=== PATIENT | male | born 1985 | race Caucasian/White ===

== ENCOUNTER 2017-08-05 14:45 | Emergency (ER) | payer BC, OTHER ==
[2017-08-05 15:41] VITALS: BP 138/74; PULSE 103; RESP 18; TEMP 97.5; O2SAT 99
[2017-08-05] MEDS ORDERED: KETOROLAC TROMETHAMINE 60 MG/2 ML (IM) VIAL IM ONE (18:00)
[2017-08-05] MEDS ORDERED: TAMSULOSIN HCL 0.4 MG CAP PO ONE (18:00)
[2017-08-05] MEDS ORDERED: ONDANSETRON ODT 4 MG TAB PO/SL ONE (18:00)
--- NOTE | 2017-08-05 18:03 | PD ---
HPI Chief Complaint: Back/ Neck Pain or Injury Time Seen by Provider: 17:43 Travel History International Travel<30 days: No Contact w/Intl Traveler<30days: No Traveled to known affect area: No History of Present Illness HPI 31-year-old male presents to the ED for evaluation of one month history of intermittent left sided back pain. States that the pain has become more constant over the last few days. He states that today he had a sharp pain that radiated into the left groin. This was accompanied by nausea and chills. He also complains of difficulty starting his urinary stream over the last few days. He denies fever, abdominal pain, dysuria, hematuria. Denies history of kidney stones. He states that when the pain began he thought it might be musculoskeletal pain, even though he could identify no acute injury. He treated at home over the course the month with a few doses of ibuprofen with no improvement of symptoms. [facility] Social History Tobacco Use: No Allergies-Medications (Allergen,Severity, Reaction): Coded Allergies: No Known Allergies (Unverified , 08/05/17) Review of Systems Except as stated in HPI: all other systems reviewed are Neg Physical Exam Narrative GENERAL: Well-nourished, well-developed white male in no acute distress. SKIN: Focused skin assessment warm/dry. HEAD: Normocephalic. EYES: No scleral icterus. No injection or drainage. NECK: Supple, trachea midline. No JVD or lymphadenopathy. CARDIOVASCULAR: Regular rate and rhythm without murmurs, gallops, or rubs. RESPIRATORY: Breath sounds equal bilaterally. No accessory muscle use. GASTROINTESTINAL: Abdomen soft, nondistended. Left-sided flank tenderness. Left lower quadrant tenderness. Active bowel sounds. MUSCULOSKELETAL: No cyanosis, or edema. BACK: Nontender without obvious deformity. Positive left-sided CVA tenderness. Data Data Last Documented VS Vital Signs Date Time Temp Pulse Resp B/P (MAP) Pulse Ox O2 Delivery O2 Flow Rate FiO2 08/05/17 15:41 97.5 103 18 138/74 (95) [address] Abd/Pel W/O Iv Contrast (08/05/17 17:50) Ketorolac Inj (Toradol Inj) (08/05/17 18:00) Ondansetron Odt (Zofran Odt) (08/05/17 18:00) Tamsulosin (Flomax) (08/05/17 18:00) Urinalysis - C+S If Indicated (08/05/17 18:51) Ed Discharge Order (08/05/17 20:19) Labs Laboratory Tests Test 08/05/17 19:01 Urine Color YELLOW Urine Turbidity CLEAR Urine pH 5.5 Urine Specific [place] 1.031 Urine Protein TRACE mg/dL Urine Glucose (UA) NEG mg/dL Urine Ketones 10 mg/dL Urine Occult Blood NEG Urine Nitrite NEG Urine Bilirubin NEG Urine Urobilinogen 2.0 MG/DL Urine Leukocyte Esterase NEG Urine RBC LESS THAN 1 /hpf Urine WBC 4 /hpf Urine Squamous Epithelial Cells <1 /hpf Urine Amorphous Sediment RARE Urine Mucus MANY /lpf Microscopic Urinalysis Comment CULT NOT INDICATED MDM Medical Decision Making Medical Screen Exam Complete: Yes Emergency Medical Condition: Yes Differential Diagnosis Nephroureterolithiasis versus musculoskeletal pain versus pyelonephritis versus other Narrative Course 31-year-old male presents to the ED for evaluation of one month history of intermittent left sided back pain, more constant over the last few days. He states that today he had a sharp pain that radiated into the left groin, accompanied by nausea and chills. He also complains of difficulty starting his urinary stream over the last few days. He denies fever, abdominal pain, dysuria , hematuria, history of kidney stones. Vitals reviewed. On exam the patient has left-sided CVA, flank and lower quadrant tenderness. Exam is otherwise reassuring. Patient was administered Zofran, Flomax. I offered him Toradol which he refused. No culture indicated of the UA. CT reveals moderate constipation, no acute findings. I discussed the results of the workup with the patient. I provided him with a copy of the CT report. I recommended that he follow-up with his primary care provider for further evaluation. He is agreeable to the care plan. He is stable and discharged home. Diagnosis Primary Impression: Left flank pain Additional Impressions: Left low back pain Qualified Codes: M54.5 - Low back pain Constipation Qualified Codes: K59.00 - Constipation, unspecified Referrals: Primary Care Physician Additional Instructions: Rest, hydrate. Return to normal, gentle activity as tolerates. Follow up with your primary care provider. Return to the ED for worsening symptoms or any urgent/ emergent medical condition. Disposition: DISCHARGE HOME Condition: Stable Shelley Guzman Aug 05, 2017 18:03
[2017-08-05 19:20] LABS: AMORPHOUS SEDIMENT, URINE RARE; BILIRUBIN, URINE NEG (NEG); BLOOD, URINE NEG (NEG); GLUCOSE,URINE NEG (NEG); KETONE, URINE 10 mg/dL (NEG); MUCUS URINE MANY /lpf (OCC); NITRITE,URINE NEG (NEG); PH, URINE 5.5 (5.0-8.5); SQUAMOUS EPITHELIAL CELL URINE <1 /hpf (0-5); URINE COLOR YELLOW (YELLW/STRAW); URINE LEUKOCYTE ESTERASE NEG (NEG)
--- NOTE | 2017-08-05 20:05 | RADRPT ---
EXAM DATE/TIME: 08/05/2017 19:27 [facility] COMPARISON: No previous studies available for comparison. INDICATIONS : Left flank pain for one month. ORAL CONTRAST: No oral contrast ingested. RADIATION DOSE: 19.32 CTDIvol (mGy) MEDICAL HISTORY : None SURGICAL HISTORY : None. ENCOUNTER: Initial ACUITY: 1 day PAIN SCALE: 7/10 LOCATION: Left flank TECHNIQUE: Volumetric scanning of the abdomen and pelvis was performed. Using automated exposure control and ad justment of the mA and/or kV according to patient size, radiation dose was kept as low as reasonably achievable to obtain optimal diagnostic quality images. DICOM format image data is available electro nically for review and comparison. FINDINGS: LOWER LUNGS: The visualized lower lungs are clear. LIVER: Homogeneous density without lesion. There is no dilation of the biliary tree. No calcified gallston es. SPLEEN: Normal size without lesion. PANCREAS: Within normal limits. KIDNEYS: Normal in size and shape. There is no mass, stone, or hydronephrosis. ADRENAL GLANDS: Within normal limits. VASCULAR: There is no aortic aneurysm. BOWEL/MESENTERY: The stomach, small bowel, and colon demonstrate no acute abnormality. There is no free intraperitone al air or fluid. ABDOMINAL WALL: Within normal limits. RETROPERITONEUM: There is no lymphadenopathy. BLADDER: No wall thickening or mass. REPRODUCTIVE: Within normal limits. INGUINAL: There is no lymphadenopathy or hernia. MUSCULOSKELETAL: Within normal limits for patient age. CONCLUSION: 1. No acute findings. Moderate constipation. Specifically no renal calculi or evidence for obstructiv e uropathy. Slim Redman MD on August 05, 2017 at 20:01 Board Certified Radiologist. This report was verified electronically.
== END 2017-08-05 20:29 | disposition home or self-care (01) ==
LOC: NEPK 14:45
DX: M54.5 Low back pain (principal); K59.00 Constipation, unspecified
CPT/HCPCS: 74176; 81001; 99283